=== PATIENT | female | born 1935 | race Caucasian/White ===

== ENCOUNTER 2017-03-02 20:53 | Inpatient (IN) | payer MEDICARE, BC, OTHER ==
[2017-03-02] MEDS ORDERED: methylPREDNISolone Sod Succ/PF 125 MG/2 ML VIAL ONE (21:46)
[2017-03-02] MEDS ORDERED: Water For Inject, Bacteriostat 30 ML ONE (21:46)
[2017-03-02 21:58] LABS: #Lymphocytes 0.7 thou/uL (1.20-3.40); #Monocytes 0.3 thou/uL (0.11-0.59); #Neutrophils 4.2 thou/uL (1.40-6.50); %Basophils 0.2 % (0.0-1.0); %Eosinophils 0.8 % (0.0-10.0); %Lymphocytes 14.1 % (21.0-51.0); %Monocytes 5.5 % (0.0-10.0); Hematocrit 40.7 % (36.0-47.0); Mean Platelet Volume 7.5 fL (7.4-10.4); Red Blood Cell (RBC) Count 4.82 mill/uL (4.20-5.40); White Blood Cell (WBC) Count 5.3 thou/uL (4.8-10.8)
[2017-03-02 22:17] LABS: Troponin I Less than 0.010 ng/mL (< 0.028)
[2017-03-02 22:19] LABS: ALT (SGPT) 13 U/L (8-55); AST (SGOT) 21 U/L (5-34); Alkaline Phosphatase 82 U/L (40-150); Anion Gap 16 mmol/L (10-20); BUN (Urea Nitrogen) 12 mg/dL (9.8-20.1); Bilirubin, Total 1.2 mg/dL (0.2-1.2); Calc. Creatinine Clearance 0 mL/min (70-130); Calcium 9.1 mg/dL (7.8-10.44); Carbon Dioxide 22 mmol/L (23-31); Chloride 102 mmol/L (98-107); Estimated GFR-MDRD 62; Globulin 2.8 g/dL (2.4-3.5); Magnesium 2.4 mg/dL (1.6-2.6); Protein, Total 6.7 g/dL (6.0-8.3)
--- NOTE | 2017-03-02 22:28 | RAD ---
AP VIEW CHEST: 03/02/17 HISTORY: Dyspnea. AP view chest is obtained on 03/02/17. Comparison made to previous exam from 09/01/16. AP view chest demonstrates ectasia and calcification of the aorta. The lungs are well aerated. No ev idence of active intrathoracic disease seen. No evidence of effusions, pneumonia or pneumothorax see n. IMPRESSION: Unremarkable AP view chest. POS: [facility]
[2017-03-03] MEDS ORDERED: Albuterol Sulfate 2.5 mg/3 ml Neb NEB PRN (01:37)
[2017-03-03] MEDS ORDERED: Ondansetron HCl/PF 4 MG/2 ML Vial IVP PRN (01:37)
[2017-03-03] MEDS ORDERED: HYDROcodone/Acetaminophen 5/325 mg Tablet PO PRN (01:37)
[2017-03-03] MEDS ORDERED: HYDROcodone/Acetaminophen 10/325 mg Tablet PO PRN (01:37)
[2017-03-03] MEDS ORDERED: Acetaminophen 325 MG TAB PO PRN (01:37)
[2017-03-03 01:46] VITALS: BMI 26.3
--- NOTE | 2017-03-03 02:06 | HP ---
DATE OF ADMISSION: 03/02/2017 PRIMARY CARE PHYSICIAN: Makeda Tripp M.D. PRIMARY DIESEL POWERPLANT MECHANIC: Thad Mart M.D. CHIEF COMPLAINT: Shortness of breath. HISTORY OF PRESENT ILLNESS: Ms. Matthew is a pleasant 81-year-old white female with a history of [place] PD and hypertension who for the last 4-5 days, had increasing shortness of breath. She did not call her primary doctor nor her lung masonry supervisor because she said she would not be able to get in, but did admit that she did not even try. She got worsening shortness of breath this morning with increased dyspnea on exertion that resulting in anxiety, so presented in the emergency department for evaluation. Here, she was found to be in respiratory extremis with diffuse inspiratory and expiratory wheezes. She was given IV Solu-Medrol, and back to back nebulizer treatments. Her respiratory status did imp rove, where she was tachycardic. She was satting well on 3 liters nasal cannula, and we were called for admission. The patient subsequently was going to be placed on BiPAP; however, she was able to talk to me in 10- 15 word sentences and was moving air adequately. I opted instead to hold BiPAP and to admit to the Intermediate Care Unit for closer observation. The patient denies any fevers or chills, no cough or sputum production, she has felt feverish, but h as not any night sweats, rigors or chills. She denies any chest pains. PAST MEDICAL HISTORY: 1. COPD. Last exacerbation was in 08/2016. 2. Hypertension. PAST SURGICAL HISTORY: 1. Appendectomy at age 15. 2. Right salpingo-oophorectomy remotely. HOME MEDICATIONS: 1. Losartan 50 mg p.o. b.i.d. 2. HCTZ 12.5 mg daily. 3. Spiriva 18 mcg inhaled b.i.d. 4. Advair 1 puff b.i.d. 5. Albuterol nebs t.i.d. 2.5 mg. 6. Oxygen 2-1/2 liters nasal cannula at bedtime. ALLERGIES: VERAPAMIL and CODEINE both have side effects which that made her intolerant, but not a t rue allergy. FAMILY HISTORY: Negative for clotting or bleeding disorder, no immune dysfunction. SOCIAL HISTORY: Negative for habits x3. She smoked for approximately 47 years, 1 pack per day. Eliezer tovar is . accompanies her. His name is Gokul Becerra, his phone number is [phone]. Advance directive: I did discuss code status. The patient does wish to be FULL CODE. Her Gokul Becerra is her medical decision maker should she be unable to make decisions. His phone number is area code [phone]. REVIEW OF SYSTEMS: A 10-point review of systems was performed and negative for other systems except as stated as per HPI. PHYSICAL EXAMINATION: VITAL SIGNS: Temperature 97.9, pulse 122, blood pressure 155/107, respiratory rate 24, and satting 94% on 3 liters nasal cannula. GENERAL: She is awake. She is alert. She is oriented x3. She is a well-developed, overweight eld erly female who appears to be in [id number] respiratory distress, but [facility]. HEENT: Normocephalic and atraumatic. Her pupils are equal, round, reactive to light bilaterally, m ucous members are moist. She has no visible lesions. No thrush. NECK: Supple. There is no lymphadenopathy, no JVD, no thyromegaly. No accessory muscle use for re spiration. LUNGS: Show diffuse inspiratory and expiratory wheezing with slightly prolonged expiratory phase. She has good air movement bilaterally. Symmetrical chest excursion. She has no rhonchi or rales he shivam. She has no supraclavicular or intercostal retractions. CARDIOVASCULAR: She is tachycardic, but regular with normal S1, S2. I cannot appreciate murmurs. ABDOMEN: Soft, is nontender, nondistended with no masses, no organomegaly. She has no rebound, rig idity or guarding with normoactive bowel sounds. EXTREMITIES: No cyanosis, no clubbing, no edema. She has a rapid palpable pulse, in both the poste rior tibial and dorsalis pedis arteries. SKIN: Warm, moist, and well perfused without rashes or lesions. MUSCULOSKELETAL: Normal to inspection without any inflamed joints or palpable joint effusions. NEUROLOGIC: Shows cranial nerves II-XII to be grossly intact without any focal deficits and 5/5 str ength. LABORATORY DATA: CMP is within normal limits. Creatinine 0.88, potassium 3.6. Her mag was not jenelle cked. CBC is normal. Platelets 145. White count 5.3 and hemoglobin 13.0. D-dimer mildly elevated at 0.90 and BNP was normal at 98.1. CK-MB was 2.9, troponin I was less than 0.010 and undetectable . Chest x-ray showed no acute cardiopulmonary disease. ASSESSMENT AND PLAN: 1. Acute exacerbation of chronic obstructive pulmonary disease: We will place the patient on 40 mg Solu-Medrol q.6, scheduled DuoNebs q.4 h., albuterol q.2 h. p.r.n., and inhaled budesonide 0.5 mg b .i.d. We will consult masonry supervisor and Dr. Mart is her regular masonry supervisor. The patient will be placed on empiric antibiotics with levofloxacin for chronic obstructive pulmonary disease exacer bation. 2. Acute on chronic hypoxic respiratory failure: The patient normally does not require oxygen, but is on oxygen at present. We will place her in the intermediate care unit. If she decompensates, w e will place her on BiPAP. She did consent to intubation if necessary. I do not think it will get to that point. 3. Hypertension, essential, on losartan and HCTZ. We will continue these. 4. Anxiety. The patient gets anxious when she gets short of breath for obvious reasons. We will h ave IV Ativan available. 5. Deep venous thrombosis prophylaxis with sequential compression devices, the patient did not want to be poked anymore. May convert to Lovenox later. 6. Gastrointestinal prophylaxis with famotidine has been ordered.
[2017-03-03 05:04] LABS: #Lymphocytes 0.3 thou/uL (1.20-3.40); #Monocytes 0.1 thou/uL (0.11-0.59); #Neutrophils 3.5 thou/uL (1.40-6.50); %Eosinophils 0.2 % (0.0-10.0); %Lymphocytes 7.8 % (21.0-51.0); %Monocytes 1.5 % (0.0-10.0); Hematocrit 36.3 % (36.0-47.0); Mean Platelet Volume 7.6 fL (7.4-10.4); Red Blood Cell (RBC) Count 4.33 mill/uL (4.20-5.40); White Blood Cell (WBC) Count 3.9 thou/uL (4.8-10.8)
[2017-03-03 05:21] LABS: Anion Gap 15 mmol/L (10-20); BUN (Urea Nitrogen) 12 mg/dL (9.8-20.1); Calc. Creatinine Clearance 51 mL/min (70-130); Calcium 8.9 mg/dL (7.8-10.44); Carbon Dioxide 23 mmol/L (23-31); Chloride 100 mmol/L (98-107); Estimated GFR-MDRD 53
[2017-03-03] MEDS: methylPREDNISolone Sod Succ/PF 125 MG/2 ML VIAL IVP SCH ×2 (05:55→12:34)
[2017-03-03] MEDS ORDERED: Budesonide 0.5 MG/2 ML NEB INH SCH (06:30)
[2017-03-03] MEDS: Losartan Potassium 25 MG TAB PO SCH ×2 (08:39→20:49)
[2017-03-03] MEDS: Potassium Chloride 20 MEQ TAB PO SCH ×3 (08:39→15:53)
[2017-03-03] MEDS: Hydrochlorothiazide 25 MG TAB PO SCH (08:39)
[2017-03-03] MEDS ORDERED: Famotidine 20 MG TAB PO SCH (09:00)
--- NOTE | 2017-03-03 14:05 | CON ---
DATE OF CONSULTATION: 03/03/2017 PULMONARY MEDICINE REASON FOR CONSULTATION: COPD exacerbation. HISTORY OF PRESENT ILLNESS: The patient is an 81-year-old white female with past medical history si gnificant for very advanced COPD. She is oxygen dependent. She was in her usual state of health un til roughly . She started having sniffles and significant drainage from the nose. She ende d up with an upper respiratory tract infection, low grade temperatures, muscle aches and pains. She called went to a physician on Wednesday and got a steroid injection and an antibiotic injection. She was subsequently discharged home, but decompensated through the weekend. This continued to get wors e and so she presented to the emergency department overnight because she had gone 2 days without timothy ng able to rest. She was coughing, but not bringing up significant change in sputum production. e denies any current nausea, vomiting or diarrhea. There has been no change to her bowel movements. Otherwise, she is in her usual state of health. She was placed in the IMCU after a brief episode of using BiPAP. This morning, she does feel much improved compared to presentation. PAST MEDICAL HISTORY: 1. COPD, advanced. 2. Hypertension. PAST SURGICAL HISTORY: 1. Appendectomy. 2. Right salpingo-oophorectomy. MEDICATIONS: List of her inpatient medications was reviewed. Multiple updates were made ALLERGIES: VERAPAMIL, CODEINE. FAMILY HISTORY: Noncontributory. SOCIAL HISTORY: She has a roughly 50-pack year history of smoking, but quit remotely. She has no e xposure to chemicals, dust asbestos, or tuberculosis. She denies any significant alcohol or illicit drug use. REVIEW OF SYSTEMS: General, head, ears, eyes, nose, throat, cardiovascular, respiratory, GI, , mu sculoskeletal, neurologic and skin is negative except as mentioned in the HPI. PHYSICAL EXAMINATION: VITAL SIGNS: Afebrile, pulse 104, blood pressure 136/54, respirations 20, saturation 100% on 2 lite rs nasal cannula. GENERAL: The patient is awake and alert, in no apparent distress. LUNGS: Decreased air entry with prolonged expiratory phase and expiratory wheezing identified. A f ew rhonchi cleared with cough. No crackles. HEART: Normal rate, regular. ABDOMEN: Soft, nontender, nondistended, bowel sounds positive. MUSCULOSKELETAL: No cyanosis or clubbing. I do not appreciate any pitting in the bilateral lower e xtremities. GENITOURINARY: No Horvath catheter. NEUROLOGIC: Grossly nonfocal. LABORATORY DATA: WBC 3.9, hemoglobin 11.8. Platelets 147,000. INR 1.0, D-dimer 0.9. Potassium 3. 2. Basic metabolic profile is otherwise unremarkable. Magnesium is normal. Cardiac enzymes are ne gative x2. BNP 98. Liver function studies are unremarkable. IMAGING: Chest x-ray demonstrates hyperexpanded lung green bilaterally. I do not appreciate any s ignificant pleural effusion. Carinal angle is appropriately acute. No significant pulmonary vascul ar congestion is identified. I certainly do not appreciate any consolidating changes. ASSESSMENT: 1. Chronic obstructive pulmonary disease with acute exacerbation. 2. Acute on chronic hypoxic respiratory failure, resolved at baseline. 3. Hypokalemia. PLAN: I will decrease her prednisone to twice daily dosing. Agree with levofloxacin. If she sanjuana nues to improve by tomorrow, we can convert her over to p.o. medication and treat for a total durati on of 5 days. Frequent DuoNeb medications will be continued. Budesonide will be interrupted as thi s is likely adding nothing to high dose of parenteral steroids. Dr. Mart is aware that the patie nt is here and will assume coverage tomorrow.
--- NOTE | 2017-03-03 15:33 | PDOC.PN ---
- Subjective Encounter Start Date: 03/03/17 Encounter Start Time: 15:31 Subjective: c/o LOPEZ.no fever/chills - Objective Resuscitation Status: Resuscitation Status FULL:Full Resuscitation MAR Reviewed: Yes Vital Signs & Weight: Vital Signs (12 hours) Temp Pulse Resp BP BP Pulse Ox 03/03/17 15:03 98.2 F 106 H 20 129/57 L 100 03/03/17 14:07 101 H 18 100 03/03/17 11:12 98.7 F 104 H 20 136/54 L 100 03/03/17 10:49 98 20 100 03/03/17 08:00 98.0 F 99 20 03/03/17 07:56 99 03/03/17 07:55 99 20 100 03/03/17 07:10 98.0 F 98 20 145/64 H 100 03/03/17 04:00 98.3 F 100 20 123/46 L 100 Weight Weight 163 lb 3.2 oz I&O: 03/02/17 03/03/17 03/04/17 06:59 06:59 06:59 Intake Total 335 Output Total 550 Balance -215 Result Diagrams: 03/03/17 04:30 03/03/17 04:30 Phys Exam - Physical Examination Constitutional: NAD able to converse in long sentences w huffing & puffing HEENT: PERRLA, moist MMs, sclera anicteric, TM's clear, oral pharynx no lesions , 2+ tonsils Neck: no nodes, no JVD, supple, full ROM Respiratory: no wheezing, no rales, no rhonchi, clear to auscultation bilateral Cardiovascular: RRR, no significant murmur Gastrointestinal: soft, non-tender, no distention, positive bowel sounds Musculoskeletal: no edema, pulses present Neurological: non-focal, normal sensation, moves all 4 limbs Psychiatric: normal affect, A&O x 3 Skin: no rash Dx/Plan (1) Acute respiratory distress Code(s): R06.03 - ACUTE RESPIRATORY DISTRESS Status: Acute (2) Acute bronchitis with COPD Code(s): J44.0 - CHRONIC OBSTRUCTIVE PULMON DISEASE W ACUTE LOWER RESP INFCT; J20.9 - ACUTE BRONCHITIS, UNSPECIFIED Status: Acute (3) Hypertension Code(s): I10 - ESSENTIAL (PRIMARY) HYPERTENSION Status: Chronic - Plan continue antibiotics, respiratory therapy, incentive spirometry, out of bed/ ambulate, DVT proph w/SCDs no hypoxia.satbel .not requiring Bipap.cont Iv steroids,nebs,ABx. -: on home o2 at 2.5L.cont supportive care. -: less likleihood of PE. -: am labs -: replace and recheck lytes. * . Review of Systems - Review of Systems Constitutional: Weakness, Malaise ENT: negative: Ear Pain, Ear Discharge, Nose Pain, Nose Discharge, Nose Congestion, Mouth Pain, Mouth Swelling, Throat Pain, Throat Swelling, Other Respiratory: Cough, SOB with Excertion. negative: Dry, Shortness of Breath, Hemoptysis, Pleuritic Pain, Sputum, Wheezing Cardiovascular: negative: Chest Pain, Palpitations, Orthopnea, Paroxysmal Noc. Dyspnea, Edema, Light Headedness, Other Gastrointestinal: negative: Nausea, Vomiting, Abdominal Pain, Diarrhea, Constipation, Melena, Hematochezia, Other Genitourinary: negative: Dysuria, Frequency, Incontinence, Hematuria, Retention , Other Musculoskeletal: negative: Neck Pain, Shoulder Pain, Arm Pain, Back Pain, Hand Pain, Leg Pain, Foot Pain, Other Neurological: negative: Weakness, Numbness, Incoordination, Change in Speech, Confusion, Seizures, Other - Medications/Allergies Allergies/Adverse Reactions: Allergies Allergy/AdvReac Type Severity Reaction Status Date / Time codeine Allergy Verified 10/02/14 15:27 verapamil Allergy Verified 10/02/14 15:27 Medications: Current Medications Acetaminophen (Tylenol) 650 mg PO Q4H PRN PRN Reason: Headache/Fever or Pain Hydrocodone Bitart/Acetaminophen ([place] 10/325) 1 tab PO Q4H PRN PRN Reason: Severe Pain (7-10) Hydrocodone Bitart/Acetaminophen ([place] 5/325) 1 tab PO Q4H PRN PRN Reason: Moderate Pain (4-6) Albuterol Sulfate (Ventolin) 2.5 mg NEB Q2H PRN PRN Reason: Wheezing Albuterol/Ipratropium (Duoneb) 3 ml NEB [id number] [facility] Last Admin: 03/03/17 14:07 Dose: 3 ml Hydrochlorothiazide (Hydrochlorothiazide) 12.5 mg PO DAILY [facility] Last Admin: 03/03/17 08:39 Dose: 12.5 mg Levofloxacin 500 mg/ Device 100 mls @ 100 mls/hr IVPB Q24HR [facility] Last Admin: 03/03/17 03:00 Dose: Not Given Influenza Virus Vaccine (Fluzone High-Dose 2017- Syr) 0.5 ml IM .ONCE ONE Stop: 03/04/17 09:01 Lorazepam (Ativan) 0.5 mg SLOW IVP Q6H PRN PRN Reason: Anxiety/Agitation Losartan Potassium (Cozaar) 50 mg PO BID [facility] Last Admin: 03/03/17 08:39 Dose: 50 mg Methylprednisolone Sodium Succinate (Solu-Medrol) 40 mg IVP Q12HR [facility] Ondansetron HCl (Zofran) 4 mg IVP Q6H PRN PRN Reason: Nausea/Vomiting Sodium Chloride (Flush - Normal Saline) 10 ml IVF Q12HR [facility] Last Admin: 03/03/17 08:40 Dose: 10 ml Sodium Chloride (Flush - Normal Saline) 10 ml IVF PRN PRN PRN Reason: Saline Flush Last Admin: 03/03/17 05:56 Dose: 10 ml
[2017-03-03] MEDS ORDERED: Hydrocortisone Acetate 25 MG Suppository PR SCH (18:30)
[2017-03-04] MEDS: Lorazepam 2 MG/ML VIAL SLOW IVP PRN (03:21)
[2017-03-04 07:44] LABS: Anion Gap 9 mmol/L (10-20); BUN (Urea Nitrogen) 22 mg/dL (9.8-20.1); Calc. Creatinine Clearance 48 mL/min (70-130); Calcium 9.1 mg/dL (7.8-10.44); Carbon Dioxide 27 mmol/L (23-31); Chloride 105 mmol/L (98-107); Estimated GFR-MDRD 50; Magnesium 2.5 mg/dL (1.6-2.6)
[2017-03-04] MEDS ORDERED: FLU VACC TS2017-18 (>65YR) 0.5 ML SYRINGE IM ONE (09:00)
[2017-03-04] MEDS: Losartan Potassium 25 MG TAB PO SCH ×2 (09:29→20:22)
[2017-03-04] MEDS: Enoxaparin Sodium 40 MG/0.4 ML SYRINGE SC SCH (09:30)
[2017-03-04] MEDS: Hydrochlorothiazide 25 MG TAB PO SCH (09:30)
--- NOTE | 2017-03-04 09:57 | PDOC.PN ---
- Subjective Encounter Start Date: 03/04/17 Encounter Start Time: 08:00 Pt seen and examined. not at bedside, but will return to speak with him later. Case discussed iwth Dr Mart and Dr Boswell. Pt breating much better, no cough, no f/c, no N/V/D/C, LOPEZ markedly improved, PT to see today. Pt is RSV positive, likely her cause. Doubt PE at this point. Pt is concerned and fears were alleviated. No other complaints, no acute events, no satting 99-100% on 3L. 10 point ROS performed and neg for all except as above - Objective Resuscitation Status: Resuscitation Status FULL:Full Resuscitation MAR Reviewed: Yes Vital Signs & Weight: Vital Signs (12 hours) Temp Pulse Resp BP Pulse Ox 03/04/17 08:21 94 20 99 03/04/17 07:05 98.2 F 97 18 109/54 L 100 03/04/17 04:00 98.7 F 113 H 20 118/54 L 99 03/04/17 01:58 111 H 20 100 03/04/17 00:26 103 H 20 100 03/03/17 21:56 100 18 100 Weight Weight 163 lb 3.2 oz I&O: 03/03/17 03/04/17 03/05/17 06:59 06:59 06:59 Intake Total 335 780 Output Total 550 1151 Balance -215 -371 Result Diagrams: 03/03/17 04:30 03/04/17 06:55 Radiology Reviewed by me: Yes EKG Reviewed by me: Yes Phys Exam - Physical Examination Constitutional: NAD HEENT: PERRLA, moist MMs, sclera anicteric, oral pharynx no lesions Neck: no nodes, no JVD, supple, full ROM Respiratory: no rales, no rhonchi slightl prolonged expiration, end expiratory high pitched wheezing. Cardiovascular: no significant murmur, no rub tachy at 100, regular, no murmurs Gastrointestinal: soft, non-tender, no distention, positive bowel sounds Musculoskeletal: no edema, pulses present Neurological: non-focal, normal sensation, moves all 4 limbs Lymphatic: no nodes Psychiatric: normal affect, A&O x 3 Skin: no rash, normal turgor, cap refill <2 seconds Dx/Plan (1) Acute exacerbation of chronic obstructive pulmonary disease (COPD) Code(s): J44.1 - CHRONIC OBSTRUCTIVE PULMONARY DISEASE W (ACUTE) EXACERBATION Status: Acute Comment: improving, to po steroids when okay with pulm. JIM [email or web address], PRN albuterol (2) RSV (acute bronchiolitis due to respiratory syncytial virus) Status: Acute Comment: NAAT positive, could probably stop levoflox, will go to po for now (3) Anxiety Code(s): F41.9 - ANXIETY DISORDER, UNSPECIFIED Status: Acute Comment: given ativan this morning, helped (4) Acute and chronic respiratory failure with hypoxia Code(s): J96.21 - ACUTE AND CHRONIC RESPIRATORY FAILURE WITH HYPOXIA Status: Acute Comment: improved O2 sats on NC, wean as tolerated (5) Hypertension Code(s): I10 - ESSENTIAL (PRIMARY) HYPERTENSION Status: Chronic Qualifiers: Hypertension type: essential hypertension Qualified Code(s): I10 - Essential (primary) hypertension - Plan cont current plan of care, continue antibiotics, PT/OT, respiratory therapy, DVT proph w/SCDs * .
--- NOTE | 2017-03-04 10:59 | PRG ---
DATE OF SERVICE: 03/04/2017 SUBJECTIVE: The patient complains she did not sleep last night. PHYSICAL EXAMINATION: VITAL SIGNS: Temperature is 98.7, pulse 113, respirations 20, O2 sat 99%, blood pressure 118/54. HEENT: Unremarkable. NECK: No JVD. LUNGS: She has mild expiratory wheezing bilaterally. CARDIOVASCULAR: S1, S2 regular. ABDOMEN: Soft. EXTREMITIES: No edema. LABORATORY DATA: White blood cell count 3.9, hematocrit 36, platelet count 147. Sodium 137, potass ium 4.1, BUN 22, creatinine 1.1, glucose 161. ASSESSMENT: Chronic obstructive pulmonary disease with exacerbation. PLAN: 1. She can probably be transferred up to the medical floor, continue IV steroids, nebulization mira tments. 2. Add Lovenox for DVT prophylaxis.
[2017-03-04 13:59] LABS: #Eosinphils 0.1 thou/uL (0.0-0.7); #Lymphocytes 1.1 thou/uL (1.20-3.40); #Neutrophils 15.8 thou/uL (1.40-6.50); %Eosinophils 0.3 % (0.0-10.0); %Lymphocytes 6.1 % (21.0-51.0); %Monocytes 5.6 % (0.0-10.0); Hematocrit 40.9 % (36.0-47.0); Mean Platelet Volume 8.2 fL (7.4-10.4); Red Blood Cell (RBC) Count 4.73 mill/uL (4.20-5.40)
[2017-03-04 14:11] LABS: Anion Gap 13 mmol/L (10-20); BUN (Urea Nitrogen) 27 mg/dL (9.8-20.1); Calc. Creatinine Clearance 42 mL/min (70-130); Calcium 9.7 mg/dL (7.8-10.44); Carbon Dioxide 25 mmol/L (23-31); Chloride 103 mmol/L (98-107); Estimated GFR-MDRD 42
[2017-03-04] MEDS ORDERED: Chloraseptic Spray 180 ml Bottle PO PRN (17:22)
[2017-03-05] MEDS: Enoxaparin Sodium 40 MG/0.4 ML SYRINGE SC SCH (09:03)
[2017-03-05] MEDS: predniSONE 20 MG TAB PO SCH (09:04)
[2017-03-05] MEDS: Hydrochlorothiazide 25 MG TAB PO SCH (09:04)
[2017-03-05] MEDS: Losartan Potassium 25 MG TAB PO SCH ×2 (09:04→21:04)
--- NOTE | 2017-03-05 09:35 | PRG ---
DATE OF SERVICE: 03/05/2017 SUBJECTIVE: Patient is doing better. Respiratory panel came back positive for RSV. OBJECTIVE: VITAL SIGNS: Temperature 97.7 respirations 20, O2 saturation was 100% on 2 liters, blood pressure 1 27/52. HEENT: Unremarkable. NECK: No JVD. LUNGS: Fairly clear without wheezing. CARDIOVASCULAR: S1 and S2 regular. ABDOMEN: Soft. EXTREMITIES: No edema. LABORATORY DATA: No labs were obtained today. ASSESSMENT: 1. Respiratory syncytial virus bronchitis. 2. Acute hypoxic respiratory failure, which is improved. PLAN: 1. Change to oral prednisone. 2. Wean oxygen as tolerated. 3. Increase activity. 4. I could probably stop Levaquin at anytime from my standpoint. 5. Likely can go home tomorrow.
--- NOTE | 2017-03-05 09:47 | PDOC.PN ---
- Subjective Encounter Start Date: 03/05/17 Encounter Start Time: 08:30 Pt sen and examined, feeling much better, much less anxious. No wheezing, feels very weak, not eating well. Discussed post hospital care, ant pt is at present refusal of IPR or SNF for rehab, and is even refusing HHC with PT. Will see how she does. Nebs and steroids adjusted, pt will be transferred to floor. No F/C, no CP, less LOPEZ, no N/V/D/c, no sputum, dry cough 10 point ROS performed and all neg except as stated above - Objective Resuscitation Status: Resuscitation Status FULL:Full Resuscitation MAR Reviewed: Yes Vital Signs & Weight: Vital Signs (12 hours) Temp Pulse Resp BP Pulse Ox 03/05/17 08:12 96 03/05/17 08:10 93 22 H 96 03/05/17 08:00 97.5 F L 93 22 H 100 03/05/17 07:20 97.5 F L 92 20 115/60 100 03/05/17 04:00 97.7 F 97 20 127/52 L 100 03/05/17 03:11 90 24 H 97 Weight Weight 157 lb 12.8 oz I&O: 03/04/17 03/05/17 03/06/17 06:59 06:59 06:59 Intake Total 780 150 240 Output Total 1151 450 Balance -371 -300 240 Result Diagrams: 03/04/17 13:37 03/04/17 13:37 Radiology Reviewed by me: Yes EKG Reviewed by me: Yes Phys Exam - Physical Examination Constitutional: NAD HEENT: PERRLA, moist MMs, sclera anicteric, 2+ tonsils Neck: no nodes, no JVD, supple, full ROM Respiratory: no wheezing, no rales, no rhonchi, clear to auscultation bilateral Cardiovascular: RRR, no significant murmur, no rub Gastrointestinal: soft, non-tender, no distention, positive bowel sounds Musculoskeletal: no edema, pulses present Neurological: non-focal, normal sensation, moves all 4 limbs Lymphatic: no nodes Psychiatric: normal affect, A&O x 3 Skin: no rash, normal turgor, cap refill <2 seconds Dx/Plan (1) Acute exacerbation of chronic obstructive pulmonary disease (COPD) Code(s): J44.1 - CHRONIC OBSTRUCTIVE PULMONARY DISEASE W (ACUTE) EXACERBATION Status: Acute Comment: improving, to po steroids. QID duonebs, PRN albuterol (2) RSV (acute bronchiolitis due to respiratory syncytial virus) Status: Acute Comment: NAAT positive, could probably stop levoflox, will finish 5 days (3) Anxiety Code(s): F41.9 - ANXIETY DISORDER, UNSPECIFIED Status: Acute Comment: given ativan prn, helping (4) Acute and chronic respiratory failure with hypoxia Code(s): J96.21 - ACUTE AND CHRONIC RESPIRATORY FAILURE WITH HYPOXIA Status: Acute Comment: improved O2 sats on NC, wean as tolerated (5) Hypertension Code(s): I10 - ESSENTIAL (PRIMARY) HYPERTENSION Status: Chronic Qualifiers: Hypertension type: essential hypertension Qualified Code(s): I10 - Essential (primary) hypertension - Plan cont current plan of care, continue antibiotics, PT/OT, respiratory therapy * .
[2017-03-05] MEDS ORDERED: Famotidine/PF 20 mg/2ml Vial SLOW IVP SCH (20:45)
[2017-03-05] MEDS ORDERED: methylPREDNISolone Sod Succ/PF 125 MG/2 ML VIAL IVP SCH (20:45)
[2017-03-06] MEDS: Lorazepam 2 MG/ML VIAL SLOW IVP PRN (00:04)
[2017-03-06] MEDS: Enoxaparin Sodium 40 MG/0.4 ML SYRINGE SC SCH (08:35)
[2017-03-06] MEDS: Losartan Potassium 25 MG TAB PO SCH ×2 (08:35→20:41)
[2017-03-06] MEDS: Hydrochlorothiazide 25 MG TAB PO SCH (08:39)
[2017-03-06] MEDS: predniSONE 20 MG TAB PO SCH (08:39)
--- NOTE | 2017-03-06 09:23 | PDOC.PN ---
- Subjective Encounter Start Date: 03/06/17 Encounter Start Time: 08:30 Pt seen and examined. Reports an episode starting around 7pm last night after eating where she became very red and flushed in her torso. head and neck, and felt like she was going to crawl out of her skin. She related it to her dinner offerings. No F/c, no N/V/D/C, no CP, no SOB, + anxiety with the episode. Ultimate, the night Float was called, and ordered solumedrol and pepcid and resolved around midnight, meds given at 2230. breathing remains improved 10 point ROS performed and neg for all systems except as above - Objective Resuscitation Status: Resuscitation Status FULL:Full Resuscitation MAR Reviewed: Yes Vital Signs & Weight: Vital Signs (12 hours) Temp Pulse Resp BP Pulse Ox 03/06/17 08:30 97.6 F 99 18 144/63 H 98 03/06/17 06:49 92 L 03/06/17 06:48 86 16 03/06/17 03:36 97.7 F 104 H 18 173/72 H 98 03/06/17 00:18 98 24 H 94 L 03/06/17 00:03 98.1 F 115 H 22 H 159/74 H 97 03/05/17 22:49 98.1 F 101 H 20 123/59 L 93 L Weight Weight 163 lb 14.4 oz I&O: 03/05/17 03/06/17 03/07/17 06:59 06:59 06:59 Intake Total 150 1330 Output Total 450 1220 Balance -300 110 Result Diagrams: 03/04/17 13:37 03/04/17 13:37 Radiology Reviewed by me: Yes EKG Reviewed by me: Yes Phys Exam - Physical Examination Constitutional: NAD HEENT: PERRLA, moist MMs, sclera anicteric, oral pharynx no lesions Neck: no nodes, no JVD, supple, full ROM Respiratory: no wheezing, no rales, no rhonchi, clear to auscultation bilateral Cardiovascular: RRR, no significant murmur, no rub Gastrointestinal: soft, non-tender, no distention, positive bowel sounds Musculoskeletal: no edema, pulses present Neurological: non-focal, normal sensation, moves all 4 limbs Lymphatic: no nodes Psychiatric: normal affect, A&O x 3 Skin: no rash, normal turgor, cap refill <2 seconds Dx/Plan (1) Acute exacerbation of chronic obstructive pulmonary disease (COPD) Code(s): J44.1 - CHRONIC OBSTRUCTIVE PULMONARY DISEASE W (ACUTE) EXACERBATION Status: Acute Comment: improved, on po steroids. QID duonebs, PRN albuterol. Tolerating well. Home when other issues stable. Appreicate pulm assistance. Dr Jackson to see today (2) RSV (acute bronchiolitis due to respiratory syncytial virus) Status: Acute Comment: NAAT positive, could probably stop levoflox, will finish 5 days (3) Anxiety Code(s): F41.9 - ANXIETY DISORDER, UNSPECIFIED Status: Acute Comment: given ativan prn, helping (4) Acute and chronic respiratory failure with hypoxia Code(s): J96.21 - ACUTE AND CHRONIC RESPIRATORY FAILURE WITH HYPOXIA Status: Acute Comment: improved O2 sats on NC, wean as tolerated (5) Hypertension Code(s): I10 - ESSENTIAL (PRIMARY) HYPERTENSION Status: Chronic Qualifiers: Hypertension type: essential hypertension Qualified Code(s): I10 - Essential (primary) hypertension (6) Flushing reaction Code(s): R23.2 - FLUSHING Status: Acute Comment: unsure of cause. review of meds show nothing new. only thing proximate ot the episode was her Duoneb given at 1830. Has these before and after the episode without reoccurence - Plan cont current plan of care, continue antibiotics, PT/OT, respiratory therapy * .
[2017-03-06 10:28] LABS: #Eosinphils 0.2 thou/uL (0.0-0.7); #Lymphocytes 0.7 thou/uL (1.20-3.40); #Monocytes 0.4 thou/uL (0.11-0.59); %Basophils 0.3 % (0.0-1.0); %Lymphocytes 8.7 % (21.0-51.0); %Monocytes 4.4 % (0.0-10.0); Hematocrit 40.5 % (36.0-47.0); Mean Platelet Volume 10.4 fL (7.4-10.4); Red Blood Cell (RBC) Count 4.59 mill/uL (4.20-5.40); White Blood Cell (WBC) Count 8.3 thou/uL (4.8-10.8)
[2017-03-06 11:52] LABS: Anion Gap 13 mmol/L (10-20); BUN (Urea Nitrogen) 27 mg/dL (9.8-20.1); Calc. Creatinine Clearance 53 mL/min (70-130); Calcium 9.4 mg/dL (7.8-10.44); Carbon Dioxide 27 mmol/L (23-31); Chloride 102 mmol/L (98-107); Estimated GFR-MDRD 56
[2017-03-06] MEDS ORDERED: Temazepam 15 MG CAP PO PRN (13:49)
--- NOTE | 2017-03-06 14:28 | PRG ---
DATE OF SERVICE: 03/06/2017 SUBJECTIVE: States she is feeling better. PHYSICAL EXAMINATION: VITAL SIGNS: She is afebrile, heart rate is 87, respiratory rate is 19, oximetry is 93%, blood pres sure is 144/67. LUNGS: Clear. IMPRESSION: 1. Bronchitis, viral mediated. 2. Chronic obstructive pulmonary disease. PLAN: Continue current care. Increase her activity.
[2017-03-06] MEDS ORDERED: Loratadine 10 MG TAB PO SCH (14:30)
[2017-03-06] MEDS: Albuterol Sulfate 2.5 mg/3 ml Neb NEB SCH (18:43)
[2017-03-06] MEDS: Ipratropium Bromide 2.5 ml Neb NEB SCH (18:44)
[2017-03-06] MEDS ORDERED: Albuterol Sulfate 2.5 mg/3 ml Neb NEB SCH (19:00)
[2017-03-07] MEDS: Albuterol Sulfate 2.5 mg/3 ml Neb NEB SCH (00:42)
[2017-03-07] MEDS: Ipratropium Bromide 2.5 ml Neb NEB SCH (00:42)
[2017-03-07] MEDS: Losartan Potassium 25 MG TAB PO SCH ×2 (08:17→20:51)
[2017-03-07] MEDS: Hydrochlorothiazide 25 MG TAB PO SCH (08:17)
[2017-03-07] MEDS: Loratadine 10 MG TAB PO SCH (08:18)
[2017-03-07] MEDS: predniSONE 20 MG TAB PO SCH (08:18)
[2017-03-07] MEDS: Enoxaparin Sodium 40 MG/0.4 ML SYRINGE SC SCH (08:18)
--- NOTE | 2017-03-07 12:25 | PDOC.PN ---
- Subjective Encounter Start Date: 03/07/17 Encounter Start Time: 10:15 pt sent to IMCU yesterday afternoon by me after having another flushing episode after her Duoneb. Pt takes Albuterol nebs TIS, BID Advair and BID spiriva at home. transitioned back to her home regimen and removed form 2N. Unsure is she was having a reaction to her neb or component thereof or if there was an environmental allergen. No problems after transfer Breathing well, slept well, numbers look great. Case discussed with Pulm, Dr Jackson 10 point ROS performed and neg for all systems except as per HPI - Objective Resuscitation Status: Resuscitation Status FULL:Full Resuscitation MAR Reviewed: Yes Vital Signs & Weight: Vital Signs (12 hours) Temp Pulse Resp BP Pulse Ox 03/07/17 11:19 98.0 F 87 18 120/48 L 98 03/07/17 08:00 97.6 F 86 18 100 03/07/17 07:15 97.6 F 86 18 112/46 L 100 03/07/17 04:00 98.4 F 81 14 141/52 H 96 Weight Weight 1567 lb 11.2 oz I&O: 03/06/17 03/07/17 03/08/17 06:59 06:59 06:59 Intake Total 1330 500 240 Output Total 1220 600 Balance 110 -100 240 Result Diagrams: 03/06/17 09:56 03/06/17 11:17 Radiology Reviewed by me: Yes EKG Reviewed by me: Yes Phys Exam - Physical Examination Constitutional: NAD HEENT: PERRLA, moist MMs, sclera anicteric, oral pharynx no lesions Neck: no nodes, no JVD, supple, full ROM Respiratory: no wheezing, no rales, no rhonchi, clear to auscultation bilateral Cardiovascular: RRR, no significant murmur, no rub Gastrointestinal: soft, non-tender, no distention, positive bowel sounds Musculoskeletal: no edema, pulses present Neurological: non-focal, normal sensation, moves all 4 limbs Lymphatic: no nodes Psychiatric: normal affect, A&O x 3 Skin: no rash, normal turgor, cap refill <2 seconds Dx/Plan (1) Acute exacerbation of chronic obstructive pulmonary disease (COPD) Code(s): J44.1 - CHRONIC OBSTRUCTIVE PULMONARY DISEASE W (ACUTE) EXACERBATION Status: Acute Comment: improved, on po steroids. QID albuterol, PRN albuterol. Tolerating well. Home when other issues stable. Appreicate pulm assistance. Dr Jackson to see today. Medicall ymuch improve,dno further episodes of flushing. Home when okay with pulm (2) RSV (acute bronchiolitis due to respiratory syncytial virus) Status: Acute Comment: NAAT positive, completed lvoflox (3) Anxiety Code(s): F41.9 - ANXIETY DISORDER, UNSPECIFIED Status: Acute Comment: given ativan prn, helping (4) Acute and chronic respiratory failure with hypoxia Code(s): J96.21 - ACUTE AND CHRONIC RESPIRATORY FAILURE WITH HYPOXIA Status: Acute Comment: improved O2 sats on NC, wean as tolerated (5) Hypertension Code(s): I10 - ESSENTIAL (PRIMARY) HYPERTENSION Status: Chronic Qualifiers: Hypertension type: essential hypertension Qualified Code(s): I10 - Essential (primary) hypertension (6) Flushing reaction Code(s): R23.2 - FLUSHING Status: Acute Comment: unsure of cause. review of meds show nothing new. only thing proximate ot the episode was her Duoneb given at 1830. Has these before and after the episode without reoccurence. better with zyrtec and gone after stopping duoneb adn moving off of 2nd floor - Plan cont current plan of care, PT/OT, respiratory therapy * .
--- NOTE | 2017-03-07 16:37 | PRG ---
DATE OF SERVICE: 03/07/2017 SUBJECTIVE: Ms. Vipul Becerra has no complaints. She says she turned red again last night, but th is was transient. I suspect this may be related to her steroids. OBJECTIVE: VITAL SIGNS: She is afebrile, heart rate 87, respiratory rate 18, oximetry is 98 on 2 liters, blood pressure 120/48. LUNGS: Clear. HEART: Regular rhythm. ABDOMEN: Soft. She wants to go home. There is no new lab today. IMPRESSION: 1. Bronchitis. 2. History of significant obstructive lung disease. PLAN: Hopefully home tomorrow if she has a good day.
[2017-03-08] MEDS ORDERED: predniSONE 20 MG TAB PO SCH (09:00)
--- NOTE | 2017-03-08 09:03 | PRG ---
DATE OF SERVICE: 03/08/2017 SUBJECTIVE: The patient is doing well and wants to go home. PHYSICAL EXAMINATION: VITAL SIGNS: Temperature 97.6, pulse 81, respirations 16, O2 sat 97%, blood pressure 116/34. HEENT: Unremarkable. NECK: No JVD. CHEST: Clear without wheezing. CARDIAC: S1 and S2 regular. ABDOMEN: Soft. EXTREMITIES: No edema. ASSESSMENT: 1. Chronic obstructive pulmonary disease exacerbation. 2. Respiratory syncytial virus. PLAN: The patient is stable for hospital discharge. She can follow up with me in 3-4 weeks. Does not look like she will need oxygen at discharge.
[2017-03-08] MEDS: Loratadine 10 MG TAB PO SCH (09:44)
[2017-03-08] MEDS: Hydrochlorothiazide 25 MG TAB PO SCH (09:44)
[2017-03-08] MEDS: Losartan Potassium 25 MG TAB PO SCH (09:44)
[2017-03-08] MEDS: Enoxaparin Sodium 40 MG/0.4 ML SYRINGE SC SCH (09:47)
[2017-03-08 11:24] VITALS: BP 111/44; TEMP 96.8
--- NOTE | 2017-03-08 12:12 | DIS ---
PRIMARY CARE PHYSICIAN: Dr. Makeda Tripp PRIMARY RISK AND INSURANCE CONSULTANT: Dr. Thad Mart DATE OF ADMISSION: 03/03/2017 DATE OF DISCHARGE: 03/08/2017 DISCHARGE DIAGNOSES: 1. Acute exacerbation of chronic obstructive pulmonary disease. 2. Acute on chronic hypoxemic respiratory failure. 3. Hypertension, essential. 4. Anxiety. 5. Acute allergic reaction. CONSULTATIONS: Pulmonology, Dr. Boswell initially, taken over by Dr. Mart on 03/04/2017. PROCEDURES: None. HISTORY OF PRESENT ILLNESS: Ms. Ailyn Becerra is a pleasant 81-year-old elderly female wh o presented to the emergency department after 4 days of increasing shortness of breath. In the emergency department, she was found to be in moderate to severe respiratory distress, was hav ing audible inspiratory and expiratory wheezing. She was given IV Solu-Medrol, back to back nebuliz er treatments without much improvement and we were subsequently called for admission. HOSPITAL COURSE: The patient seen and examined in the Emergency Department, she was able to talk in 10-15 word sentences, she was moving air well, therefore I held off on the BiPAP. The patient was placed in the Intermediate Care Unit for closer observation. She was continued on IV steroids, nebu lizers, started levofloxacin empirically, and her home medications. Pulmonary was consulted. Through the day on 03/03/2017 the patient did well. She was seen by Dr. Boswell on 03/03/2017 with minor adjustments to her medications. Overnight from 03/03/2017 to 03/04/2017 her respiratory stat us improved. She was much less dyspneic, and was much clearer. She continued to improve 03/05/2017 to 03/06/2017. She was subsequently transferred to the floor to telemetry on 03/06/2017. That night 03/04/2017 around 7:00 p.m., the patient developed acute allergic reaction with increased hyperemia, itching and agitation after getting a DuoNeb treatment. She was given IV Solu-Medrol, a nd Pepcid and seemed to improve. By about 10:30 at night and seemed to improve by midnights. By th e next morning, she was back to her normal baseline. She was continued on her regular prescheduled medications. Through the day on 03/07/2017 she continued to do well. On 03/05/2017 during the day, the patient had another episode immediately after DuoNeb treatment. She was given a p.o. Zyrtec, continued on p.o. steroids, her DuoNebs were discontinued. She was started on albuterol alone and t ransferred to the Intermediate Care Unit for closer observation. It was unclear whether this was a drug reaction versus an environmental reaction. Overnight 03/06/2017 to 03/07/2017, she had no further episodes. Her breathing was more stable and lungs were clear. By 03/08/2017 she was still symptom free, doing well on room air and stable for d ischarge with outpatient followup. PHYSICAL EXAMINATION: The patient was seen and examined on the day of discharge. Discharge plan an d disposition were discussed with the patient face to face at the bedside. DISCHARGE MEDICATIONS: 1. Xopenex 0.625 mg nebulized t.i.d. 2. Spiriva 18 mcg inhaled b.i.d. 3. Losartan/hydrochlorothiazide 50/12.5 daily. 4. Florastor 250 mg daily. 5. Advair Diskus per home dosing b.i.d. 6. Prednisone 20 mg daily to be adjusted later on by Pulmonology. DISCHARGE CONDITION: Stable. DISPOSITION: The patient is being discharged home via private vehicle. FOLLOWUP APPOINTMENTS: 1. Dr. Tripp within a week. 2. Pulmonary with Dr. Mart in 3-4 weeks. INSTRUCTIONS: Return to emergency department or call primary doctor, Dr. Mart if she has increas ed respiratory difficulties.
== END 2017-03-08 12:11 | disposition home or self-care (01) | DRG 190 ==
LOC: ERS 20:53 → IMCU/EMU 03-03 00:01 → 2NO 03-05 16:25 → IMCU/EMU 03-06 17:21
PROVIDERS: ADMIT Internal Medicine Infectious Disease; ATTEND Internal Medicine Infectious Disease
DX: J44.1 Chronic obstructive pulmonary disease with (acute) exacerbation (principal); J96.21 Acute and chronic respiratory failure with hypoxia; J44.0 Chronic obstructive pulmonary disease with (acute) lower respiratory infection; I10 Essential (primary) hypertension; J20.5 Acute bronchitis due to respiratory syncytial virus; E87.6 Hypokalemia; F41.9 Anxiety disorder, unspecified; R23.2 Flushing; Z88.5 Allergy status to narcotic agent; Z88.8 Allergy status to other drugs, medicaments and biological substances; Z87.891 Personal history of nicotine dependence
CPT/HCPCS: 36415; 71010; 80048; 80053; 82553; 83735; 83880; 84484; 85025; 85379; 85610; 87633; 93005; 94640; 96374; A4216; G8978-GP-CJ; G8979-GP-CH; J1650; J1956; J2060; J2930; J7506; J7620; J7626; S0028

== ENCOUNTER 2018-11-08 10:02 | Outpatient (CLI) | payer MEDICARE, BC, OTHER ==
--- NOTE | 2018-11-08 10:36 | RAD ---
Exam: Chest 2 views COMPARISON: 10/10/2015, 03/02/2017 HISTORY: Dyspnea. FINDINGS: Atherosclerosis and elongation of the aorta. Normal cardiac silhouette. Pulmonary vessels a nd pulmonary hilum are normal. Costophrenic angles are clear. Hyperinflation with chronic changes. No masses or consolidation. No pneumothorax. Diffuse bony mineralization. Stable mild compression def ormity at the distal thoracic spine IMPRESSION: 1. Atherosclerosis. 2. Hyperinflation with chronic changes.
== END 2018-11-08 10:03 | disposition home or self-care (01) ==
LOC: RAD 10:02
PROVIDERS: ATTEND Internal Medicine Critical Care Medicine
DX: R06.00 Dyspnea, unspecified (principal); I70.0 Atherosclerosis of aorta; R91.8 Other nonspecific abnormal finding of lung field
CPT/HCPCS: 71046